=== PATIENT | female | born 2000 | race Caucasian/White ===

== ENCOUNTER 2020-05-07 22:15 | Emergency (ER) | payer MEDICAID ==
[~2020-05-07] VITALS: Ht 160 cm; Wt 90.9 kg
[2020-05-07 22:56] LABS: BASO # 0.1 x10^3/uL (0.0-0.2); BASO % 0 % (0-3); EOS # 0.1 x10^3/uL (0.0-0.7); EOS % 1 % (0-3); HEMATOCRIT 38.7 % (36.0-47.0); HEMOGLOBIN 12.8 g/dL (12.0-15.5); LYMPH # 1.8 x10^3/uL (1.0-4.8); LYMPH % 11 % (24-48); MEAN CORPUSCULAR HEMOGLOBIN 28 pg (25-35); MEAN CORPUSCULAR HGB CONC 33 g/dL (31-37); MEAN CORPUSCULAR VOLUME 85 fL (79-100); MONO # 0.7 x10^3/uL (0.0-1.1); MONO % 4 % (0-9); NEUT # 13.8 x10^3/uL (1.8-7.7); NEUT % 84 % (31-73); PLATELET COUNT 471 x10^3/uL (140-400); RED BLOOD COUNT 4.57 x10^6/uL (3.50-5.40); RED CELL DISTRIBUTION WIDTH 15.3 % (11.5-14.5); WHITE BLOOD COUNT 16.4 x10^3/uL (4.0-11.0)
[2020-05-07 23:03] LABS: CALCIUM 9.2 mg/dL (8.5-10.1); CREATININE 0.8 mg/dL (0.6-1.0); GFR 91.4; POTASSIUM 4.1 mmol/L (3.5-5.1)
[2020-05-07 23:11] LABS: % BANDS 4 % (0-9); % BASOS 1 % (0-3); % EOS 2 % (0-5); % LYMPHS 10 % (24-48); % MONOS 3 % (0-10); % SEGS 80 % (35-66)
[2020-05-07 23:14] LABS: PLT ESTIMATE INCREASED (ADEQUATE); TOXIC GRANULATION SLIGHT
--- NOTE | 2020-05-07 23:46 | RAD ---
INDICATION: Reason: abd pain / Spl. Instructions: / History: COMPARISON: None. TECHNIQUE: Grayscale and color ultrasound images uterus and adnexa. Transabdominal and transvaginal images obtained. Transvaginal images were needed to better visualize structures that were limited on transabdominal imaging. FINDINGS: Uterus: 74 x 36 x 30 mm. Endometrial Stripe: 7 mm. Right Ovary: 23 x 22 x 17 mm. Left Ovary: 21 x 21 x 17 mm. Vascular flow identified to bilateral ovaries. IMPRESSION: * Vascular flow seen to the ovaries without an intrauterine gestational sac seen. Electronically signed by: Fly Zambrano MD (05/07/2020 11:43 PM) [id number]
[2020-05-08] MEDS ORDERED: IV NORMAL SALINE 1000ML BAG 1,000 ML IV ONE (00:30)
[2020-05-08] MEDS ORDERED: CONTRAST GIVEN. MC PRN (01:00)
[2020-05-08] MEDS ORDERED: IOHEXOL 240 MG/ML 50ML VIAL. PO ONE (01:00)
[2020-05-08] MEDS ORDERED: IOHEXOL 300 MG/ML 100ML VIAL. IV ONE (01:00)
[2020-05-08 02:16] VITALS: BP 142/88
--- NOTE | 2020-05-08 02:58 | RAD ---
INDICATION: Reason: abd pain, tachycardia, WBC, OMNI 300, 75 ML IV, OMNI 240, 30 ML IV / Spl. Instructions: STARTED DRINKING @ 1245 / History: COMPARISON: None. TECHNIQUE: Axial CT images obtained through the abdomen and pelvis with contrast. One or more of the following individualized dose reduction techniques were utilized for this examination: 1. Automated exposure control; 2. Adjustment of the mA and/or kV according to patient size; 3. Use of iterative reconstruction technique. FINDINGS: Abdominal aorta is not aneurysmal. No intrahepatic bile duct dilation. Small fat-containing umbilical hernia. No peripancreatic fluid collection. No perisplenic hematoma. 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 No hydronephrosis. Urinary bladder is partially distended. No periappendiceal inflammatory changes. No dilated loops of bowel to suggest obstruction. Degenerative changes the spine. IMPRESSION: * No evidence of bowel obstruction, hydronephrosis or appendicitis. Electronically signed by: Fly Zambrano MD (05/08/2020 2:55 AM) [id number]
--- NOTE | 2020-05-08 03:20 | PHYS DOC ---
Past Medical History Past Medical History: Anxiety, Asthma, Bipolar, Other Additional Past Medical Histor: HEART MURMUR Past Surgical History: No Surgical History Smoking Status: Former Smoker Alcohol Use: None General Adult EDM: Chief Complaint: ABDOMINAL PAIN IN HPI: HPI: Patient is a 19-year-old female who presents to the emergency room complaining of lower abdominal cramping that started earlier this evening. Patient states that she is 16 weeks . She denies any vaginal discharge or bleeding. She is concerned about her fetus. She has had an ectopic a year ago. Those are the only 2 times she has been . She denies any nausea, vomiting, diarrhea, constipation, fever, chest pain, cough, shortness of breath. Review of Systems: Review of Systems: General: Denies fever, chills, sweats, fatigue Eyes: Denies drainage, blurred vision, eye redness HENT: Denies rhinorrhea, sore throat, earache Respiratory: Denies cough, shortness of breath, wheezing Cardiac: Denies edema, palpitations, chest pain GI: Denies Nausea, vomiting reports abdominal cramping MSK: Denies back pain, neck pain Skin: Denies rash, jaundice Neuro: Denies headache, dizziness Psychiatric: Denies SI/HI Heart Score: Risk Factors: Risk Factors: DM, Current or recent (<one month) smoker, HTN, HLP, family history of CAD, obesity. Risk Scores: Score 0 - 3: 2.5% MACE over next 6 weeks - Discharge Home Score 4 - 6: 20.3% MACE over next 6 weeks - Admit for Clinical Observation Score 7 - 10: 72.7% MACE over next 6 weeks - Early Invasive Strategies Current Medications: Current Medications Medications (Trade) Dose Ordered Sig/Ever Start Time Stop Time Status Last Admin Dose Admin Info (CONTRAST GIVEN -- Rx MONITORING) 1 each PRN DAILY PRN 05/08/20 01:00 05/10/20 00:59 Iohexol (Omnipaque 240 Mg/ml) 30 ml 1X ONCE 05/08/20 01:00 05/08/20 01:01 DC Iohexol (Omnipaque 300 Mg/ml) 75 ml 1X ONCE 05/08/20 01:00 05/08/20 01:01 DC Sodium Chloride 1,000 ml @ 1,000 mls/hr 1X ONCE 05/08/20 00:30 05/08/20 01:29 DC 05/08/20 00:33 1,000 MLS/HR Allergies: Allergies: Allergies Coded Allergies Type Severity Reaction Last Updated Verified No Known Drug Allergies 05/07/20 No Physical Exam: PE: General: Awake, alert, NAD. Well Nourished, well hydrated. Cooperative HEENT: Atraumatic, EOMI, PERRL, airway patent, moist oral mucosa Neck: Supple, trachea midline Respiratory: CTA bilaterally, normal effort, no wheezing/crackles CV: RRR, no murmur, cap refill <2 GI: Soft, nondistended, nontender, no masses MSK: No obvious deformities Skin: Warm, dry, intact Neuro: A&O x3, speech NL, sensory and motor grossly intact, no focal deficits Psych: Normal affect, normal mood, not suicidal or homicidal Current Patient Data: Labs: Laboratory Tests Test 05/07/20 22:47 White Blood Count 16.4 x10^3/uL (4.0-11.0) H Red Blood Count 4.57 x10^6/uL (3.50-5.40) Hemoglobin 12.8 g/dL (12.0-15.5) Hematocrit 38.7 % (36.0-47.0) Mean Corpuscular Volume 85 fL (79-100) Mean Corpuscular Hemoglobin 28 pg (25-35) Mean Corpuscular Hemoglobin Concent 33 g/dL (31-37) Red Cell Distribution Width 15.3 % (11.5-14.5) H Platelet Count 471 x10^3/uL (140-400) H Neutrophils (%) (Auto) 84 % (31-73) H Lymphocytes (%) (Auto) 11 % (24-48) L Monocytes (%) (Auto) 4 % (0-9) Eosinophils (%) (Auto) 1 % (0-3) Basophils (%) (Auto) 0 % (0-3) Neutrophils # (Auto) 13.8 x10^3/uL (1.8-7.7) H Lymphocytes # (Auto) 1.8 x10^3/uL (1.0-4.8) Monocytes # (Auto) 0.7 x10^3/uL (0.0-1.1) Eosinophils # (Auto) 0.1 x10^3/uL (0.0-0.7) Basophils # (Auto) 0.1 x10^3/uL (0.0-0.2) Segmented Neutrophils % 80 % (35-66) H Band Neutrophils % 4 % (0-9) Lymphocytes % 10 % (24-48) L Monocytes % 3 % (0-10) Eosinophils % 2 % (0-5) Basophils % 1 % (0-3) Toxic Granulation Slight Platelet Estimate Increased (ADEQUATE) Maternal Serum HCG Beta Subunit < 1 mIU/mL (0-5) Sodium Level 138 mmol/L (136-145) Potassium Level 4.1 mmol/L (3.5-5.1) Chloride Level 103 mmol/L (98-107) Carbon Dioxide Level 29 mmol/L (21-32) Anion Gap 6 (6-14) Blood Urea Nitrogen 9 mg/dL (7-20) Creatinine 0.8 mg/dL (0.6-1.0) Estimated GFR (Cockcroft-Gault) 91.4 Glucose Level 109 mg/dL (70-99) H Calcium Level 9.2 mg/dL (8.5-10.1) Laboratory Tests 05/07/20 22:47 Laboratory Tests 05/07/20 22:47 Vital Signs: Vital Signs Date Time Temp Pulse Resp B/P (MAP) Pulse Ox O2 Delivery O2 Flow Rate FiO2 05/08/20 00:33 100 18 132/64 (86) 97 Room Air 05/07/20 22:23 97.9 97.9 EKG: EKG: [] Radiology/Procedures: Radiology/Procedures: [] Course & Med Decision Making: Course & Med Decision Making Pertinent Labs and Imaging studies reviewed. (See chart for details) Patient is a 19-year-old female who presents the emergency room complaining of abdominal cramping. Patient states that she is 16 weeks but has not seen QUALITY MANAGEMENT COORDINATOR yet. OB ultrasound, CBC, type and screen, beta hCG were ordered. After ultrasound it was found that patient is not at this time. She does have a mildly elevated white blood cell count and had some mild tachycardia. CT abdomen pelvis was ordered to rule out other causes of abdominal pain. CT is negative. At this time patient is feeling better. Patient's test results and vitals while in the ED were fully reviewed and discussed with the patient. Patient is stable and at this time does not need admission to the hospital. We have discussed strict return precautions and the importance of following up with their Primary Care Physician. Patient stated understanding and was given an opportunity to ask any questions. Patient is in agreement with plan. Dragon Disclaimer: Dragon Disclaimer: This electronic medical record was generated, in whole or in part, using a voice recognition dictation system. Departure Departure Impression: Primary Impression: Abdominal pain Disposition: HOME, SELF-CARE Condition: STABLE Referrals: NO PCP (PCP) Patient Instructions: Abdominal Pain Justicifation of Admission Dx: Justifications for Admission: Justification of Admission Dx: N/A JOSE GUTIERREZ MD May 08, 2020 03:20
== END 2020-05-08 03:30 | disposition home or self-care (01) ==
LOC: ER 22:15
DX: O26.892 Other specified pregnancy related conditions, second trimester (principal); R10.30 Lower abdominal pain, unspecified; F41.9 Anxiety disorder, unspecified; J45.909 Unspecified asthma, uncomplicated; F31.9 Bipolar disorder, unspecified; Z87.891 Personal history of nicotine dependence; Z3A.16 16 weeks gestation of pregnancy
CPT/HCPCS: 36415; 74177; 76801; 80048; 84702; 85007; 85025; 86900; 86901; 96360; 99285; J7030; Q9966; Q9967